=== PATIENT | female | born 1990 | race Caucasian/White ===

== ENCOUNTER 2021-08-24 10:06 | Emergency (ER) | payer OTHER ==
[~2021-08-24] VITALS: Ht 160 cm; Wt 81.6 kg
[2021-08-24 10:06] VITALS: BP_SYST 130
--- NOTE | 2021-08-24 10:07 | NUR ---
Patient triaged and placed in waiting room. VSS and patient appears in no acute distress at this time. Accompanied by SELF, awaiting available bed, and MD notified of need for MSE.
--- NOTE | 2021-08-24 10:16 | NUR ---
PT STATES THAT SHE HAS BEEN SICK WITH COUGH AND CONGESTION FOR 1 1/2 WEEKS. PT STATES SHE IS NOT VACCINATED AGAINST COVID AND HAS NOT TESTED HERSELF.
--- NOTE | 2021-08-24 10:38 | NUR ---
DR TAFOYA OUT TO TRIAGE ROOM TO EVALUATE PT.
--- NOTE | 2021-08-24 10:40 | NUR ---
Patient given written and verbal discharge instructions and verbalizes understanding. ER MD discussed with patient the results and treatment provided. Patient in stable condition. ID arm band removed. Rx of NONE given. Patient educated on pain management and to follow up with PMD. Pain Scale 0/10. Opportunity for questions provided and answered. Medication side effect fact sheet provided. PT AWARE STAFF WILL CALL HER WITH COVID RESULTS
--- NOTE | 2021-08-24 11:46 | NUR ---
CALLED AND SPOKE WITH PT, TOLD PT RESULTS OF COVID TESTING PER REQUEST OF DR TAFOYA.
== END 2021-08-24 10:40 | disposition home or self-care (01) ==
LOC: SED 10:06
DX: J06.9 Acute upper respiratory infection, unspecified (principal); Z20.822 Contact with and (suspected) exposure to COVID-19
CPT/HCPCS: 36415; 99283

== ENCOUNTER 2021-11-19 22:53 | Emergency (ER) | payer OTHER ==
[~2021-11-19] VITALS: Ht 160 cm; Wt 81.6 kg
[2021-11-19 23:32] VITALS: BP_SYST 139
== END 2021-11-20 01:05 | disposition left against medical advice (07) ==
LOC: SED 22:53
DX: U07.1 COVID-19 (principal); E86.0 Dehydration; R50.9 Fever, unspecified; R53.81 Other malaise; M79.10 Myalgia, unspecified site; Z79.899 Other long term (current) drug therapy
CPT/HCPCS: 36415; 99283